=== PATIENT | male | born 1955 | race Caucasian/White ===

== ENCOUNTER 2023-06-08 05:35 | Day surgery (SDC) | payer MEDICARE, OTHER ==
[2023-06-02 15:34] VITALS: BMI 32.4
[2023-06-08] MEDS ORDERED: ALPRAZolam 0.25 MG TAB PO PRN (06:07)
[2023-06-08] MEDS ORDERED: NITROGLYCERIN SL TABS 0.4 MG TAB SUBLINGUAL PRN (06:07)
[2023-06-08] MEDS ORDERED: SODIUM CHLORIDE 0.9% 1,000 ML in EMPTY BAG 1 BAG IV SCH (06:07)
[2023-06-08] MEDS ORDERED: ALPRAZolam 0.5 MG TAB PO PRN (06:07)
[2023-06-08] MEDS ORDERED: ASPIRIN 81 MG ONE (06:17)
[2023-06-08] MEDS ORDERED: SODIUM CHLORIDE 0.9% 1,000 ML IV ONE (06:39)
[2023-06-08 06:41] VITALS: RESP 16; TEMP 97.1
[2023-06-08] MEDS ORDERED: VERAPAMIL 2.5 MG/ML 2 ML AMP ONE (07:09)
[2023-06-08] MEDS ORDERED: HEPARIN SODIUM 1,000 UN/ML (10ML VL) ONE (07:10)
[2023-06-08 07:11] LABS: Basophils % (A) 1 %; Eosinophils # (A) 0.1 k/uL (0-0.7); Eosinophils % (A) 3 %; HCT 39.3 % (39.0-53.0); HGB 12.8 gm/dL (13.0-17.5); Lymphocytes # (A) 0.8 k/uL (1.0-4.8); Lymphocytes % (A) 22 %; MCHC 32.5 g/dL (31.0-37.0); MCV 86.3 fL (80.0-100.0); Mean Platelet Volume 9.3; Monocytes # (A) 0.4 k/uL (0-1.0); Monocytes % (A) 10 %; Neutrophils # (A) 2.3 k/uL (1.3-7.7); Neutrophils % (A) 62 %; Platelet Count 151 k/uL (150-450); RBC 4.56 m/uL (4.30-5.90); RDW 14.1 % (11.5-15.5); WBC 3.7 k/uL (3.8-10.6)
[2023-06-08 07:13] LABS: African American GFR (CKD) >90 (>60 ml/min/1.73 sqM); Anion Gap 9 mmol/L; Blood Urea Nitrogen 22 mg/dL (9-20); Calcium 8.4 mg/dL (8.4-10.2); Carbon Dioxide 23 mmol/L (22-30); Chloride 110 mmol/L (98-107); Glucose 86 mg/dL (74-99); Non-African American GFR(CKD) 81 (>60 ml/min/1.73 sqM); Potassium 4.1 mmol/L (3.5-5.1); Sodium 142 mmol/L (137-145)
[2023-06-08] MEDS ORDERED: LIDOCAINE 1% INJ 10MG/ML (5 ML VIAL-PF) SQ ONE (07:44)
[2023-06-08] MEDS ORDERED: VERAPAMIL SYRINGE (5 MG/10 ML) INTRAARTER ONE (07:44)
[2023-06-08] MEDS ORDERED: MIDAZOLAM 2 MG/2 ML VIAL IVP ONE (07:45)
[2023-06-08] MEDS ORDERED: HEPARIN SODIUM 1,000 UN/ML (10ML VL) IVP ONE (07:48)
[2023-06-08] MEDS ORDERED: IOPAMIDOL-370 100ML BTL INJ ONE (07:54)
[2023-06-08] MEDS ORDERED: RX INFO: IV CONTRAST WAS GIVEN 1 EACH MISC MISCELLANE PRN (08:02)
--- NOTE | 2023-06-08 08:06 | P.PCN ---
Date of Procedure: 06/08/23 Operative Findings: CARDIAC CATHETERIZATION PERFORMING PHYSICIAN: Lexa Alanis MD, RPVI PROCEDURE PERFORMED: 1. Selective right and left coronary angiogram 2. Left heart catheterization 2. Ultrasound-guided access of the right radial artery INDICATION: Shortness of breath in this 67-year-old gentleman who is known to have CAD based on CT calcium score and he underwent myocardial perfusion imaging stress that showed an inferior ischemia. COMPLICATION: None APPROACH: Right radial artery LEVEL OF SEDATION: Moderate with a sedation length of 14 minutes PROCEDURE DESCRIPTION: After obtaining an informed consent, the patient was brought to cardiac labor relations representative. Local anesthesia was performed using lidocaine subcutaneously. The right radial artery was cannulated using Seldinger technique, the guidewire passed easily, following that we advanced a 5-Hungarian sheath dilator assembly, the wire and dilator were removed and sheath was flushed. Following that, 2 mg of verapamil along with 5000 unit heparin were given. Selective right and left coronary angiogram using a 6-Hungarian JR4 and JL 3.5 catheters. Following that we did left heart catheterization using 6-Hungarian pigtail catheter. The procedure was completed there was no complication. SELECTIVE CORONARY ANGIOGRAM: The right coronary artery: Moderate caliber vessel nondominant vessel. The RCA has mild disease only. Left main: Is angiographically normal. Bifurcates into an LCx and LAD The left circumflex: Large caliber vessel and a dominant vessel. The proximal LCx is angiographically normal and gives rises into an OM1 which has mild disease in the proximal portion. The mid LCx is angiographically normal and gives rises into an appointment to which appeared to be angiographically normal. The circumflex distally is normal and bifurcates into PDA and PLV branches both appeared to be angiographically normal. The left anterior descending artery: Large caliber vessel. Its angiographically normal. Gives rise into 3 diagonal branches the appeared to be normal. HEMODYNAMICS: LVEDP was 12 mmHg was no significant gradient across aortic valve CONCLUSION: 1. Mild disease involving OM1 of the left circumflex 2. Normal left-sided filling pressure POSTPROCEDURE MANAGEMENT: Medical treatment and follow-up with the patient
[2023-06-08] MEDS ORDERED: SODIUM CHLORIDE 0.9% 1,000 ML IV SCH (08:15)
[2023-06-08 13:40] VITALS: BP 139/64; PULSE 70
== END 2023-06-08 12:01 | disposition home or self-care (01) ==
LOC: CATHCVL 05:35
PROVIDERS: ATTEND Internal Medicine Interventional Cardiology
DX: I25.10 Atherosclerotic heart disease of native coronary artery without angina pectoris (principal); I10 Essential (primary) hypertension; E78.5 Hyperlipidemia, unspecified; Z82.49 Family history of ischemic heart disease and other diseases of the circulatory system; Z79.82 Long term (current) use of aspirin; Z79.899 Other long term (current) drug therapy
CPT/HCPCS: 93458; 76937; 80048; 85025; C1769; C1894; J2250; J2001; J1644; Q9967

== ENCOUNTER 2024-12-11 06:53 | Day surgery (SDC) | payer MEDICARE ==
[2024-12-05 14:32] VITALS: BMI 32.4
[~2024-12-11 06:53] MED LIST: LACTATED RINGERS 1,000 ML IV SCH; LIDOCAINE 1% (10MG/ML) FOR IV START INTRADERMA PRN
[2024-12-11 07:11] VITALS: TEMP 97.2
[2024-12-11] MEDS: IV FLUID CONTINUATION 1,000 ML IV ONE (07:14)
[2024-12-11] MEDS ORDERED: PROPOFOL 10 MG/ML 20 ML VIAL IV ONE (08:06)
--- NOTE | 2024-12-11 08:09 | P.GSHP ---
History of Present Illness H&P Date: 12/11/24 Chief Complaint: Anemia, screening 69-year-old male here today for upper and lower endoscopy. Patient was found recently to have iron deficiency anemia. Follows with hematology for that. Last colonoscopy 9 to 10 years ago. No bowel complaints. No family history of colon cancer. No upper GI complaints. Past Medical History Past Medical History: Hyperlipidemia, Hypertension, Prostate Disorder History of Any Multi-Drug Resistant Organisms: None Reported Past Surgical History: Hernia Repair, Joint Replacement, Orthopedic Surgery, Tonsillectomy Additional Past Surgical History / Comment(s): LT KNEE REPL., colonoscopy Past Anesthesia/Blood Transfusion Reactions: No Reported Reaction, Motion Sickness, Postoperative Nausea & Vomiting (PONV) Additional Past Anesthesia/Blood Transfusion Reaction / Comment(s): no blood transfusion Smoking Status: Never smoker - Past Family History Mother Family Medical History: Cancer Additional Family Medical History / Comment(s): breast bone brain Medications and Allergies Home Medications Medication Instructions Recorded Confirmed Type Aspirin [Adult Low Dose Aspirin EC] 81 mg PO DAILY 06/02/23 12/05/24 History Tamsulosin [Flomax] 0.4 mg PO DAILY 06/02/23 12/05/24 History Cyanocobalamin (Vitamin B-12) 5,000 mcg PO DAILY 12/05/24 12/05/24 History [Vitamin B-12] Ezetimibe [Zetia] 10 mg PO DAILY 12/05/24 12/05/24 History Ferrous Sulfate [Feosol] 325 mg PO DAILY 12/05/24 12/05/24 History Glucosa Chowdhury 2Kcl/Chondroitin Chowdhury 1 each PO DAILY 12/05/24 12/05/24 History [Glucosamine-Chondroitin Cap] Magnesium 400 mg PO DAILY 12/05/24 12/05/24 History Multivitamin [Multivitamins Adult 1 each PO DAILY 12/05/24 12/05/24 History Gummies] Niacin (Inositol Niacinate) 500 mg PO DAILY 12/05/24 12/05/24 History [Niacin 500 mg Capsule] Saw Hyndman 450 mg PO TID 12/05/24 12/05/24 History Turmeric/Turmeric Root Extract 1 each PO DAILY 12/05/24 12/05/24 History [Turmeric 450-50 mg Capsule] Vitamin E (Dl,Tocopheryl Acet) 1 tab PO DAILY 12/05/24 12/05/24 History [Vitamin E (400 Iu = 180 mg)] Allergies Allergy/AdvReac Type Severity Reaction Status Date / Time aspirin Allergy Rash/Hives Verified 12/11/24 07:04 Surgical - Exam Vital Signs Temp Pulse Resp BP Pulse Ox 97.2 F L 72 18 165/92 98 12/11/24 07:09 12/11/24 07:09 12/11/24 07:09 12/11/24 07:09 12/11/24 07:09 Physical exam: General: Well-developed, well-nourished HEENT: Normocephalic, sclerae nonicteric Abdomen: Nontender, nondistended Extremities: No edema Neuro: Alert and oriented Assessment and Plan (1) Colon cancer screening Narrative/Plan: Will proceed with upper and lower endoscopy at this time. Current Visit: Yes Status: Acute Code(s): Z12.11 - ENCOUNTER FOR SCREENING FOR MALIGNANT NEOPLASM OF COLON SNOMED Code(s): 053722843
--- NOTE | 2024-12-11 08:33 | P.PCN ---
Date of Procedure: 12/11/24 Procedure(s) Performed: PREOPERATIVE DIAGNOSIS: Screening, anemia POSTOPERATIVE DIAGNOSIS: Duodenitis, gastritis, colon polyps, diverticulosis PROCEDURE: 1. EGD with biopsy 2. Colonoscopy with snare polypectomy ANESTHESIA: MAC SURGEON: Benedicto Francisco M.D. SPECIMENS: Duodenum, antrum ENDOSCOPIC PROCEDURE: The patient was on the endoscopy table in the left decubitus position. The Olympus gastroscope was inserted into the oropharynx and passed under direct visualization to the region of the third portion of the duodenum. From that point the scope was slowly withdrawn inspecting all surfaces carefully. There was duodenitis present with the subtle nodularity of the mucosa of the first and second portion of the duodenum. Multiple biopsies were taken. No ulcers were seen. The pylorus was widely patent. The stomach revealed mild gastritis changes in the antrum and a biopsy was taken. Retrofle xion revealed a normal hiatus. The esophagus was then carefully examined. There were no neoplastic inflammatory or polypoid lesions throughout the visualized esophagus. The patient was kept on the endoscopy table in the left decubitus position. The Olympus colonoscope was inserted into the anus and passed under direct visualization to the base of the cecum. The appendiceal orifice was visualized. From that point the scope was slowly withdrawn inspecting all surfaces carefully. There were no neoplastic inflammatory or polypoid lesions throughout the cecum. In the ascending colon a polyp was identified and removed using the snare with cautery technique. The remainder of the ascending transverse colon appeared normal. In the descending colon an additional small polyp was seen and removed using the snare with cautery technique. The remainder of the descending sigmoid and rectum was normal. Patient had moderate left sided diverticulosis. Digital rectal examination was normal. The patient was taken to the recovery room in stable condition per anesthesia guidelines. RECOMMENDATIONS: Await biopsy results. No definite source of anemia seen on today's exam. Resume diet.
[2024-12-11 08:52] VITALS: BP 142/75; PULSE 63; RESP 18
== END 2024-12-11 09:30 | disposition home or self-care (01) ==
LOC: ORWHC2ENDO 06:53
PROVIDERS: ATTEND Surgery
DX: Z12.11 Encounter for screening for malignant neoplasm of colon (principal); K29.50 Unspecified chronic gastritis without bleeding; K29.80 Duodenitis without bleeding; D12.2 Benign neoplasm of ascending colon; D12.4 Benign neoplasm of descending colon; K57.30 Diverticulosis of large intestine without perforation or abscess without bleeding; D50.9 Iron deficiency anemia, unspecified; E78.5 Hyperlipidemia, unspecified; I10 Essential (primary) hypertension; N40.0 Benign prostatic hyperplasia without lower urinary tract symptoms; Z90.89 Acquired absence of other organs; Z88.6 Allergy status to analgesic agent; Z98.890 Other specified postprocedural states; Z79.82 Long term (current) use of aspirin; Z79.899 Other long term (current) drug therapy
CPT/HCPCS: 45385; 43239; J2704; 88305

== ENCOUNTER → 2025-01-16 | Outpatient (CLI) | payer MEDICARE | END | disposition home or self-care (01) | LOC: LABWHC1 10:50 | PROVIDERS: ATTEND Physician Assistant | DX: K90.0 Celiac disease (principal) | CPT/HCPCS: 36415; 82784; 83516; 86003; 86255 ==